=== PATIENT | male | born 1990 | race Caucasian/White ===

== ENCOUNTER 2022-08-16 11:36 | Emergency (ER) | payer SELFPAY ==
[~2022-08-16] VITALS: Ht 157 cm; Wt 83.0 kg
[2022-08-16 11:48] VITALS: BP 119/68
[2022-08-16] MEDS ORDERED: HYDROcodone/APAP 7.5 MG/325 MG (LORTAB, LORCET PLUS) TABLET PO STA (12:03)
[2022-08-16] MEDS ORDERED: CLIN-144 PO ×2 (12:07→12:10)
[2022-08-16] MEDS ORDERED: ACHD5005 PO (12:07)
--- NOTE | 2022-08-16 12:08 | ED EENT ---
History of Present Illness General Chief Complaint: Dental Problems/Pain Stated Complaint: TOOTH PAIN Nursing Triage Note: RIGHT SIDED DENTAL PAIN. Source: patient Exam Limitations: no limitations History of Present Illness Date Seen by Provider: Aug 16, 2022 Time Seen by Provider: 12:04 Initial Comments Patient is a 31-year-old male who presents to the ED for right lower dental pain. This started 2 days ago. Started having a sharp shooting pain to the right lower jaw and ear. Patient states cold fluids seem to help resolve some of his pain. Has been taken Tylenol and ibuprofen without much improvement. Noted some mild right-sided facial swelling. History of similar type dental pain in the past. States he has a few teeth in a pool. Denies fever, chills, body aches, cough, shortness of breath, chest pain, abdominal pain, vomiting or diarrhea. Allergies and Home Medications Allergies Coded Allergies: No Known Drug Allergies (Unverified , 08/16/22) Patient Home Medication List Home Medication List Reviewed: Yes Clindamycin HCl (Clindamycin HCl) 300 Mg Capsule, 300 MG PO QID Prescribed by: COLBY ATKINS on 08/16/22 1210 Hydrocodone/Acetaminophen (Hydrocodone-Acetamin 5-325 mg) 5 Mg-325 Mg Tablet, 1 TAB PO Q4H PRN for PAIN-MODERATE (5-7) Prescribed by: COLBY ATKINS on 08/16/22 1208 Discontinued Medications Clindamycin HCl (Clindamycin HCl) 300 Mg Capsule, 300 MG PO TID Prescribed by: COLBY ATKINS on 08/16/22 1207 Review of Systems Review of Systems Constitutional: No chills, No diaphoresis, No fever, No malaise, No weakness Eyes: Denies Blurred Vision, Denies Drainage, Denies Decreased Acuity Ears: Denies Dizziness, Denies Pain Nose: denies clots, denies congestion, denies pain Mouth: denies clots, denies loose teeth; pain, swelling Throat: denies pain, denies swelling, denies discharge Respiratory: No cough, No dyspnea on exertion Cardiovascular: No chest pain Gastrointestinal: No abdominal pain, No diarrhea, No nausea, No vomiting Musculoskeletal: No back pain, No joint pain Skin: No change in color, No change in hair/nails All Other Systems Reviewed Negative Unless Noted: Yes Past Zoatfjg-Lqmeqk-Idokde Hx Patient Social History Tobacco Use?: No Substance use?: Yes Substance type: Marijuana Physical Exam Vital Signs Vital Signs - First Documented 08/16/22 11:48 Pulse 67 Resp 16 B/P (MAP) 119/68 (85) Pulse Ox 98 O2 Delivery Room Air Height, Weight, BMI Height: '" Weight: lbs. oz. kg; 33.00 BMI Method: General Appearance: WD/WN, no apparent distress Eyes: bilateral eye EOMI Ears: bilateral ear auricle normal, bilateral ear canal normal, bilateral ear TM normal Nose: normal inspection Mouth/Throat: other (Decay noted to right second lower molar. Gum swelling erythema. No active drainage. No obvious abscess. 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 (08/16/22 12:03) Vital Signs/I&O 08/16/22 11:48 Pulse 67 Resp 16 B/P (MAP) 119/68 (85) Pulse Ox 98 O2 Delivery Room Air Blood Pressure Mean: 85 Departure Communication (PCP) Reviewed previous ER visits, H&P, lab testing. Right lower dental pain for the past 2 weeks. Cold fluids seem to help. Reports right-sided facial swelling. Differential diagnosis,. Dental abscess, periapical abscess, facial cellulitis. On exam very minimal swelling on the right side. Right lower second molar with decay concern for periapical abscess. Gum swelling erythema without evidence of an abscess on exam. discuss dental block patient refused. Requested oral pain medication which was given. Patient will be started on clindamycin. Recommend probiotics. We will provide a few days worth of pain medication. Recommend ice for facial swelling. Recommend dental outpatient follow-up for further evaluation. If increased pain, redness or swelling of the face to return back to ED Impression Primary Impression: Tooth ache Disposition: 01 HOME, SELF-CARE Condition: Stable Departure-Patient Inst. Decision time for Depature: 12:06 Referrals: [facility] [place]YSIC[place] (PCP) Primary Care Physician Patient Instructions: Dental Pain Add. Discharge Instructions: Recommend following up with a dentist for further evaluation. If any worsening swelling or pain to return back to ED. recommend probiotic All discharge instructions reviewed with patient and/or family. Voiced underst anding. Scripts Clindamycin HCl (Clindamycin HCl) 300 Mg Capsule 300 MG PO QID for 7 Days, #28 CAP Prov: STORM ALVARADO 08/16/22 Hydrocodone/Acetaminophen (Hydrocodone-Acetamin 5-325 mg) 5 Mg-325 Mg Tablet 1 TAB PO Q4H PRN for PAIN-MODERATE (5-7), #8 TAB Prov: STORM ALVARADO 08/16/22 STORM ALVARADO Aug 16, 2022 12:08
== END 2022-08-16 12:30 | disposition home or self-care (01) ==
LOC: ER 11:41
DX: K02.9 Dental caries, unspecified (principal)
CPT/HCPCS: 99283

== ENCOUNTER 2022-10-24 10:43 | Emergency (ER) | payer SELFPAY ==
[~2022-10-24] VITALS: Ht 157 cm; Wt 86.0 kg
[~2022-10-24 10:43] MED LIST: ACHD5005 PO; CLIN-144 PO
[2022-10-24] MEDS ORDERED: KETOROLAC INJ 30 MG/ML VIAL IVP ONE (11:00)
[2022-10-24] MEDS ORDERED: ONDANSETRON 4 MG/2 ML (SDV) Z0FRAN IVP ONE (11:00)
[2022-10-24 11:13] LABS: BASOPHILS # (AUTO) 0.1 10^3/uL (0.0-0.1); BASOPHILS % (AUTO) 1 % (0-10); EOSINOPHILS # (AUTO) 0.1 10^3/uL (0.0-0.3); EOSINOPHILS % (AUTO) 1 % (0-10); HEMATOCRIT 49 % (40-54); HEMOGLOBIN 15.9 g/dL (13.3-17.7); LYMPHOCYTES # (AUTO) 1.6 10^3/uL (1.0-4.0); LYMPHOCYTES % (AUTO) 17 % (12-44); MEAN CORPUSCULAR HEMOGLOBIN 27 pg (25-34); MEAN CORPUSCULAR HGB CONC 32 g/dL (32-36); MEAN CORPUSCULAR VOLUME 84 fL (80-99); MEAN PLATELET VOLUME 9.7 fL (9.0-12.2); MONOCYTES # (AUTO) 0.4 10^3/uL (0.0-1.0); MONOCYTES % (AUTO) 5 % (0-12); NEUTROPHILS # (AUTO) 7.6 10^3/uL (1.8-7.8); NEUTROPHILS % (AUTO) 77 % (42-75); PLATELET COUNT 308 10^3/uL (130-400); WHITE BLOOD COUNT 9.9 10^3/uL (4.3-11.0)
--- NOTE | 2022-10-24 11:13 | ED Abdominal Pain ---
General Chief Complaint: - Reproductive Stated Complaint: LOWER ABD PAIN Nursing Triage Note: PT STATES BALLS HURT, STATES WOKE UP THIS AM W THIS PAIN THAT GOES TO R LOWER ABD. PT STATES HAS N\\V. PT HAS HX OF KIDNEYSTONE. Source of Information: Patient Exam Limitations: No Limitations History of Present Illness Date Seen by Provider: Oct 24, 2022 Time Seen by Provider: 10:46 Initial Comments 32-year-old male with past medical history of kidney stones coming in due to right lower quadrant abdominal pain radiating to his right groin. Started roughly 3 hours ago mostly to his right testicle. He checked his testicle, was not particularly tender and was not swollen. He states it feels similar somewhat to a kidney stone that has had in the past. The pain now is completely in his abdomen and none in his testicle. Denies any dysuria or discharge. Has had some nausea with it. Took 600 mg of ibuprofen a couple hours ago which did help. Otherwise denying any other acute complaints including no fever or trauma. Allergies and Home Medications Allergies Coded Allergies: No Known Drug Allergies (Unverified , 08/16/22) Patient Home Medication List Home Medication List Reviewed: Yes Clindamycin HCl (Clindamycin HCl) 300 Mg Capsule, 300 MG PO QID Prescribed by: COLBY ATKINS on 08/16/22 1210 Hydrocodone/Acetaminophen (Hydrocodone-Acetamin 5-325 mg) 5 Mg-325 Mg Tablet, 1 TAB PO Q4H PRN for PAIN-MODERATE (5-7) Prescribed by: COLBY ATKINS on 08/16/22 1208 Review of Systems Review of Systems Constitutional: No fever EENTM: No Symptoms Reported Respiratory: No Symptoms Reported Cardiovascular: No Symptoms Reported Gastrointestinal: See HPI Genitourinary: See HPI Musculoskeletal: no symptoms reported Skin: no symptoms reported Psychiatric/Neurological: No Symptoms Reported Endocrine: No Symptoms Reported Hematologic/Lymphatic: No Symptoms Reported Past Ucfcori-Ocvqod-Ltcgik Hx Patient Social History Tobacco Use?: No Use of E-Cig and/or Vaping dev: Yes E-Cig or Vaping type used: Nicotine Use of E-Cig and/or Vaping Mateusz: Current Everyday User Substance use?: Yes Substance type: Marijuana Substance frequency: Once in a while Alcohol Use?: No Pt feels they are or have been: No Past Medical History Surgery/Hospitalization HX: KIDNEY, LEG SURG Physical Exam Vital Signs Vital Signs - First Documented 10/24/22 10:50 Temp 35.6 Pulse 53 Resp 16 B/P (MAP) 115/79 (91) Pulse Ox 100 Capillary Refill : Less Than 3 Seconds Height/Weight/BMI Height: '" Weight: lbs. oz. kg; 34.00 BMI Method: General Appearance: WD/WN, no apparent distress HEENT: PERRL/EOMI, normal ENT inspection, pharynx normal Neck: non-tender, full range of motion, supple, normal inspection Respiratory: chest non-tender, lungs clear, normal breath sounds, no respiratory distress, no accessory muscle use Cardiovascular: regular rate, rhythm, no edema, no murmur Gastrointestinal: normal bowel sounds, non tender, soft; No distended, No guarding, No rebound, No tenderness Genital/Rectal: normal genital exam, other (No testicular swelling or pain, normal cremasteric reflex) Extremities: normal range of motion, non-tender, normal inspection, no pedal edema, no calf tenderness, normal capillary refill Back: normal inspection, CVA tenderness (R); No CVA tenderness (L) Neurologic/Psychiatric: no motor/sensory deficits, alert, normal mood/affect Skin: normal color, warm/dry Progress/Results/Core Measures Results/Orders Lab Results Laboratory Tests Test 10/24/22 11:00 10/24/22 11:47 Range/Units White Blood Count 9.9 4.3-11.0 10^3/uL Red Blood Count 5.81 H 4.30-5.52 10^6/uL Hemoglobin 15.9 13.3-17.7 g/dL Hematocrit 49 40-54 % Mean Corpuscular Volume 84 80-99 fL Mean Corpuscular Hemoglobin 27 25-34 pg Mean Corpuscular Hemoglobin Concent 32 32-36 g/dL Red Cell Distribution Width 14.5 10.0-14.5 % Platelet Count 308 130-400 10^3/uL Mean Platelet Volume 9.7 9.0-12.2 fL Immature Granulocyte % (Auto) 0 % Neutrophils (%) (Auto) 77 H 42-75 % Lymphocytes (%) (Auto) 17 12-44 % Monocytes (%) (Auto) 5 0-12 % Eosinophils (%) (Auto) 1 0-10 % Basophils (%) (Auto) 1 0-10 % Neutrophils # (Auto) 7.6 1.8-7.8 10^3/uL Lymphocytes # (Auto) 1.6 1.0-4.0 10^3/uL Monocytes # (Auto) 0.4 0.0-1.0 10^3/uL Eosinophils # (Auto) 0.1 0.0-0.3 10^3/uL Basophils # (Auto) 0.1 0.0-0.1 10^3/uL Immature Granulocyte # (Auto) 0.0 0.0-0.1 10^3/uL Sodium Level 141 135-145 MMOL/L Potassium Level 4.6 3.6-5.0 MMOL/L Chloride Level 109 H 98-107 MMOL/L Carbon Dioxide Level 23 21-32 MMOL/L Anion Gap 9 5-14 MMOL/L Blood Urea Nitrogen 13 7-18 MG/DL Creatinine 1.18 0.60-1.30 MG/DL Estimat Glomerular Filtration Rate 84 BUN/Creatinine Ratio 11 Glucose Level 118 H 70-105 MG/DL Calcium Level 10.0 8.5-10.1 MG/DL Corrected Calcium 8.5-10.1 MG/DL Total Bilirubin 0.4 0.1-1.0 MG/DL Aspartate Amino Transf (AST/SGOT) 21 5-34 U/L Alanine Aminotransferase (ALT/SGPT) 37 0-55 U/L Alkaline Phosphatase 89 40-136 U/L Total Protein 8.5 H 6.4-8.2 GM/DL Albumin 4.8 H 3.2-4.5 GM/DL Lipase 22 8-78 U/L My Orders Orders - STORM NAVARRETE MD Ct Abd/Pelvis Wo(Kidney Stone) (10/24/22 10:58) Ed Iv/Invasive Line Start (10/24/22 10:58) Cbc With Automated Diff (10/24/22 10:58) Comprehensive Metabolic Panel (10/24/22 10:58) Lipase (10/24/22 10:58) Ua Culture If Indicated (10/24/22 10:58) Ketorolac Injection (Ketorolac Injection (10/24/22 11:00) Ondansetron Injection (Zofran Injectio (10/24/22 11:00) Medications Given in ED Current Medications Medications Dose Ordered Sig/Darin Route Start Time Stop Time Status Last Admin Dose Admin Ketorolac Tromethamine 15 mg ONCE ONCE IVP 10/24/22 11:00 10/24/22 11:01 DC 10/24/22 11:07 15 MG Ondansetron HCl 4 mg ONCE ONCE IVP 10/24/22 11:00 10/24/22 11:01 DC 10/24/22 11:07 4 MG Vital Signs/I&O 10/24/22 10:50 Temp 35.6 Pulse 53 Resp 16 B/P (MAP) 115/79 (91) Pulse Ox 100 Blood Pressure Mean: 91 Progress Progress Note : Progress Note 32-year-old male presenting for right lower quad abdominal pain rating to the right groin. ABCs were intact and vitals were stable on presentation. Physical exam with nontender and nonswollen testicles. No significant tenderness on exam in his abdomen, does have right CVA tenderness concerning for likely kidney stone, especially given his history. An IV was placed and basic labs were obtained and were significant for normal creatinine, normal white blood cell count, normal lipase. CT abdomen pelvis ordered and interpreted by me showing a small kidney stone with mild hydronephrosis on the right consistent with his symptoms. He was given Toradol and Zofran for his symptoms via IV which helped. Urinalysis negative for infection. We will send a prescription for pain medications and have him follow-up with urology as an outpatient. Diagnostic Imaging Diagonstic Imaging: CT (abd/pelvis) Comments NAME: BENEDICT EVERETTTri Dennis [facility] REC#: [id number] PT STATUS: REG ER : 1990 PHYSICIAN: STORM NAVARRETE MD ADMIT DATE: 10/24/22/ER Draft Date of Exam:10/24/22 CT ABD/PELVIS WO(KIDNEY STONE) PROCEDURE: CT urinary tract, rule out kidney stone. TECHNIQUE: Multiple contiguous axial images were obtained through the abdomen and pelvis without the use of intravenous contrast. Auto Exposure Controls were utilized during the CT exam to meet ALARA standards for radiation dose reduction. INDICATION: Flank pain. FINDINGS: Heart size is normal. The lung bases are clear. The liver is normal in size without focal lesions. Gallbladder is unremarkable. There is no biliary duct dilatation. Spleen is normal. The pancreas and adrenal glands are unremarkable. There is mild right hydronephrosis and hydroureter secondary to a 4 mm stone in the mid right ureter. There are no other renal stones. Aorta is nonaneurysmal. The bowel gas pattern is nonspecific. Appendix is normal. There is no free air. No ascites. Some mild diverticular disease without evidence of diverticulitis. There is no pelvic mass, adenopathy or free fluid. Bladder is normal. The osseous structures are unremarkable. IMPRESSION: Mild right hydronephrosis and hydroureter secondary to a 4 mm stone in the mid right ureter. Mild diverticular disease without evidence of diverticulitis. Dictated on workstation # [id number] Dict: 10/24/22 1141 Trans: 10/24/22 1145 CV [id number] Interpreted by: VASU RAMÍREZ MD Electronically signed by: Departure Impression Primary Impression: Ureterolithiasis Disposition: 01 HOME, SELF-CARE Condition: Stable Departure-Patient Inst. Decision time for Depature: 12:20 Referrals: [facility] [place] Primary Care Physician Patient Instructions: Kidney Stone, Adult ED Add. Discharge Instructions: You do unfortunately have a 4 mm kidney stone on the right blocking off the flow of your urine from the kidney somewhat. This is what causes the pain. Ketorolac as well as hydrocodone were sent to your pharmacy for pain. Try the ketorolac first, hydrocodone next. Do not mix the ketorolac with ibuprofen or naproxen. Nausea medicines were also sent. Please follow-up with a urologist of your choosing in the meantime. Scripts Tamsulosin HCl (Flomax) 0.4 Mg Cap 0.4 MG PO DAILY for 14 Days, #14 CAP Prov: STORM NAVARRETE MD 10/24/22 Ondansetron (Ondansetron Odt) 4 Mg Tab.rapdis 4 MG SL Q6H PRN for NAUSEA/VOMITING for 5 Days, #20 TAB Prov: STORM NAVARRETE MD 10/24/22 Ketorolac Tromethamine (Ketorolac Tromethamine) 10 Mg Tablet 10 MG PO Q8H for 4 Days, #12 TAB Prov: STORM NAVARRETE MD 10/24/22 Hydrocodone/Acetaminophen (Hydrocodone-Acetamin 5-325 mg) 5 Mg-325 Mg Tablet 1 TAB PO Q6H PRN for PAIN-MODERATE (5-7) for 3 Days, #12 TAB Prov: STORM NAVARRETE MD 10/24/22 Work/School Note: Work Release Form Date Seen in the Emergency Department: Oct 24, 2022 Return to Work: Oct 25, 2022 Restrictions: Return-No Vomiting(24hrs) STORM NAVARRETE MD Oct 24, 2022 11:13
[2022-10-24 11:24] LABS: ALBUMIN 4.8 GM/DL (3.2-4.5); CHLORIDE 109 MMOL/L (98-107); POTASSIUM 4.6 MMOL/L (3.6-5.0); SODIUM 141 MMOL/L (135-145)
[2022-10-24 11:27] LABS: GLUCOSE 118 MG/DL (70-105); TOTAL PROTEIN 8.5 GM/DL (6.4-8.2)
[2022-10-24 11:28] LABS: BILIRUBIN,TOTAL 0.4 MG/DL (0.1-1.0); CARBON DIOXIDE 23 MMOL/L (21-32)
[2022-10-24 11:30] LABS: ALKALINE PHOSPHATASE 89 U/L (40-136); CREATININE SERUM 1.18 MG/DL (0.60-1.30); GFR ESTIMATED 84
[2022-10-24 11:31] LABS: BUN/CREATININE RATIO 11
[2022-10-24 11:33] LABS: ALANINE AMINOTRANSFERASE 37 U/L (0-55)
[2022-10-24 11:34] LABS: LIPASE 22 U/L (8-78)
--- NOTE | 2022-10-24 11:45 | Diagnostic Imaging Report ---
PROCEDURE: CT urinary tract, rule out kidney stone. TECHNIQUE: Multiple contiguous axial images were obtained through the abdomen and pelvis without the use of intravenous contrast. Auto Exposure Controls were utilized during the CT exam to meet ALARA standards for radiation dose reduction. INDICATION: Flank pain. FINDINGS: Heart size is normal. The lung bases are clear. The liver is normal in size without focal lesions. Gallbladder is unremarkable. There is no biliary duct dilatation. Spleen is normal. The pancreas and adrenal glands are unremarkable. There is mild right hydronephrosis and hydroureter secondary to a 4 mm stone in the mid right ureter. There are no other renal stones. Aorta is nonaneurysmal. The bowel gas pattern is nonspecific. Appendix is normal. There is no free air. No ascites. Some mild diverticular disease without evidence of diverticulitis. There is no pelvic mass, adenopathy or free fluid. Bladder is normal. The osseous structures are unremarkable. IMPRESSION: Mild right hydronephrosis and hydroureter secondary to a 4 mm stone in the mid right ureter. Mild diverticular disease without evidence of diverticulitis. Dictated by: Dictated on workstation # [id number]
[2022-10-24] MEDS ORDERED: KETO10TA PO (12:05)
[2022-10-24] MEDS ORDERED: TMSL.4C PO (12:05)
[2022-10-24] MEDS ORDERED: ONDA4TAB11 SL (12:05)
[2022-10-24] MEDS ORDERED: ACHD5005 PO (12:05)
[2022-10-24 12:09] LABS: CLARITY,URINE SLIGHTLY CLOUDY; COLOR,URINE YELLOW; GLUCOSE, URINE (UA) NEGATIVE (NEGATIVE); KETONES,URINE NEGATIVE (NEGATIVE); PROTEIN,URINE 2+ (NEGATIVE)
[2022-10-24 12:10] LABS: BILIRUBIN,URINE NEGATIVE (NEGATIVE); LEUKOCYTE ESTERASE ,URINE TRACE (NEGATIVE); NITRITE,URINE NEGATIVE (NEGATIVE)
[2022-10-24 12:11] LABS: AMORPHOUS SEDIMENT,UR RARE AMOR URATES /LPF; BACTERIA,URINE FEW /HPF; RBC,URINE TNTC /HPF; SQUAMOUS EPITHELIAL CELL,UR RARE /HPF
[2022-10-24] MEDS ORDERED: HYDROcodone/ACETAMINOPHEN 5 MG/325 MG TABLET PO ONE (12:30)
[2022-10-24 12:33] VITALS: BP 106/67
== END 2022-10-24 12:33 | disposition home or self-care (01) ==
LOC: EDUNIT# 10:43 → ER 10:47
DX: N13.2 Hydronephrosis with renal and ureteral calculous obstruction (principal); F17.290 Nicotine dependence, other tobacco product, uncomplicated
CPT/HCPCS: 36415; 74176; 80053; 81000; 83690; 85025; 87088

== ENCOUNTER 2022-12-14 12:30 | Emergency (ER) | payer SELFPAY ==
[~2022-12-14] VITALS: Ht 157 cm; Wt 82.0 kg
[~2022-12-14 12:30] MED LIST changes: +KETO10TA PO; +ONDA4TAB11 SL; +TMSL.4C PO
[2022-12-14 13:23] LABS: BILIRUBIN,URINE NEGATIVE (NEGATIVE); CLARITY,URINE SL CLOUDY; COLOR,URINE YELLOW; GLUCOSE, URINE (UA) NEGATIVE (NEGATIVE); KETONES,URINE 2+ (NEGATIVE); NITRITE,URINE NEGATIVE (NEGATIVE); PH,URINE 5.5 (5-9); PROTEIN,URINE 1+ (NEGATIVE)
[2022-12-14 13:24] LABS: BACTERIA,URINE NEGATIVE /HPF; LEUKOCYTE ESTERASE ,URINE NEGATIVE (NEGATIVE); RBC,URINE 25-50 /HPF; WBC,URINE 0-2 /HPF
[2022-12-14 13:25] LABS: AMORPHOUS SEDIMENT,UR FEW AMOR URATES /LPF; HYALINE CASTS, URINE 0-2 /LPF; SQUAMOUS EPITHELIAL CELL,UR 0-2 /HPF
[2022-12-14] MEDS ORDERED: NS IV 1000 ML 1,000 ML IV STA (13:31)
[2022-12-14] MEDS ORDERED: KETOROLAC INJ 30 MG/ML VIAL IVP ONE (13:45)
[2022-12-14] MEDS ORDERED: ONDANSETRON INJECTION 4 MG/2 ML (SDV) IVP ONE (13:45)
--- NOTE | 2022-12-14 13:48 | ED Back Pain ---
General Chief Complaint: Back Problems Stated Complaint: KIDNEY PAIN Nursing Triage Note: pt states he was diagnosed with a kidney stone in the ED. has had no relief of his symptoms. denies blood in urine, denies fevers. Source of Information: Patient Exam Limitations: No Limitations History of Present Illness Date Seen by Provider: Dec 14, 2022 Time Seen by Provider: 13:45 Initial Comments Patient is a 32-year-old male who presents to ED with bilateral lower back pain and groin pain since 4 days ago. Pain is described as sharp intermittent radiate to the testicles. Reports some mild burning with urination for frequent urination. Patient reports nausea without vomiting. History of kidney stones. Patient denies any vomiting or diarrhea. Patient has been taking ibuprofen without much improvement. Reports dark urine. Patient denies of any testicle or swelling, penile lesions, chest pain, cough, shortness of breath or fever, chills. Similar type pain in the past with his kidney stones. Has not followed up since that visit. Not concern for sexual transmitted infection. Allergies and Home Medications Allergies Coded Allergies: No Known Drug Allergies (Unverified , 08/16/22) Patient Home Medication List Home Medication List Reviewed: Yes Clindamycin HCl (Clindamycin HCl) 300 Mg Capsule, 300 MG PO QID Prescribed by: COLBY ATKINS on 08/16/22 1210 Hydrocodone/Acetaminophen (Hydrocodone-Acetamin 5-325 mg) 5 Mg-325 Mg Tablet, 1 TAB PO Q4H PRN for PAIN-MODERATE (5-7) Prescribed by: COLBY ATKINS on 08/16/22 1208 Hydrocodone/Acetaminophen (Hydrocodone-Acetamin 5-325 mg) 5 Mg-325 Mg Tablet, 1 TAB PO Q6H PRN for PAIN-MODERATE (5-7) Prescribed by: STORM NAVARRETE on 10/24/22 1205 Hydrocodone/Acetaminophen (Hydrocodone-Acetamin 5-325 mg) 5 Mg-325 Mg Tablet, 1 TAB PO Q4H PRN for PAIN-MODERATE (5-7) Prescribed by: COLBY ATKINS on 12/14/22 1510 Ketorolac Tromethamine (Ketorolac Tromethamine) 10 Mg Tablet, 10 MG PO Q8H Prescribed by: STORM NAVARRETE on 10/24/22 1205 Ondansetron (Ondansetron Odt) 4 Mg Tab.rapdis, 4 MG SL Q6H PRN for NAUSEA/VOMITING Prescribed by: STORM NAVARRETE on 10/24/22 1205 Tamsulosin HCl (Flomax) 0.4 Mg Cap, 0.4 MG PO DAILY Prescribed by: STORM NAVARRETE on 10/24/22 1205 Review of Systems Constitutional: No chills, No diaphoresis, No malaise, No weakness EENTM: No ear pain Respiratory: No dyspnea on exertion Cardiovascular: No chest pain, No edema Gastrointestinal: abdominal pain; No diarrhea, No nausea Genitourinary: No decreased output, No discharge Musculoskeletal: back pain; No joint pain Skin: No change in color All Other Systems Reviewed Negative Unless Noted: Yes Past Kqresdd-Hiyono-Dpnitq Hx Patient Social History Tobacco Use?: No Use of E-Cig and/or Vaping dev: No Substance use?: No Alcohol Use?: No Pt feels they are or have been: No Past Medical History Surgery/Hospitalization HX: KIDNEY, LEG SURG Physical Exam Vital Signs Vital Signs - First Documented 12/14/22 12:35 Temp 36.4 Pulse 82 Resp 20 B/P (MAP) 136/92 (107) Pulse Ox 98 O2 Delivery Room Air Capillary Refill : Less Than 3 Seconds Height, Weight, BMI Height: '" Weight: lbs. oz. kg; 33.00 BMI Method: General Appearance: No Apparent Distress, WD/WN HEENT: PERRL/EOMI, TMs Normal, Normal ENT Inspection, Pharynx Normal Neck: Full Range of Motion, Normal Inspection, Non Tender, Supple Cardiovascular: Regular Rate, Rhythm, No Edema, No Gallop, No JVD Respiratory: Chest Non Tender, Lungs Clear, Normal Breath Sounds, No Accessory Muscle Use, No Respiratory Distress Gastrointestinal: Normal Bowel Sounds, No Organomegaly, No Pulsatile Mass, Non Tender Genital/Rectal: Normal Genital Exam Back: Normal Inspection, No CVA Tenderness Neurologic/Psychiatric: Alert, Oriented x3, No Motor/Sensory Deficits, Normal Mood/Affect, 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 Norm as Tested Skin: Normal Color, Warm/Dry Progress/Results/Core Measures Results/Orders Lab Results Laboratory Tests Test 12/14/22 13:02 12/14/22 13:52 Range/Units Urine Color YELLOW Urine Clarity SL CLOUDY Urine pH 5.5 5-9 Urine Specific [place] 1.015 L 1.016-1.022 Urine Protein 1+ H NEGATIVE Urine Glucose (UA) NEGATIVE NEGATIVE Urine Ketones 2+ H NEGATIVE Urine Nitrite NEGATIVE NEGATIVE Urine Bilirubin NEGATIVE NEGATIVE Urine Urobilinogen 0.2 < = 1.0 MG/DL Urine Leukocyte Esterase NEGATIVE NEGATIVE Urine RBC (Auto) 3+ H NEGATIVE Urine RBC 25-50 H /HPF Urine WBC 0-2 /HPF Urine Squamous Epithelial Cells 0-2 /HPF Urine Crystals PRESENT H /LPF Urine Amorphous Sediment FEW KEE URATES H /LPF Urine Bacteria NEGATIVE /HPF Urine Casts PRESENT /LPF Urine Hyaline Casts 0-2 H /LPF Urine Mucus MODERATE H /LPF Urine Culture Indicated NO White Blood Count 10.4 4.3-11.0 10^3/uL Red Blood Count 5.06 4.30-5.52 10^6/uL Hemoglobin 14.0 13.3-17.7 g/dL Hematocrit 42 40-54 % Mean Corpuscular Volume 83 80-99 fL Mean Corpuscular Hemoglobin 28 25-34 pg Mean Corpuscular Hemoglobin Concent 34 32-36 g/dL Red Cell Distribution Width 13.8 10.0-14.5 % Platelet Count 256 130-400 10^3/uL Mean Platelet Volume 9.9 9.0-12.2 fL Immature Granulocyte % (Auto) 0 % Neutrophils (%) (Auto) 73 42-75 % Lymphocytes (%) (Auto) 16 12-44 % Monocytes (%) (Auto) 9 0-12 % Eosinophils (%) (Auto) 1 0-10 % Basophils (%) (Auto) 1 0-10 % Neutrophils # (Auto) 7.6 1.8-7.8 10^3/uL Lymphocytes # (Auto) 1.7 1.0-4.0 10^3/uL Monocytes # (Auto) 0.9 0.0-1.0 10^3/uL Eosinophils # (Auto) 0.1 0.0-0.3 10^3/uL Basophils # (Auto) 0.1 0.0-0.1 10^3/uL Immature Granulocyte # (Auto) 0.0 0.0-0.1 10^3/uL Sodium Level 139 135-145 MMOL/L Potassium Level 3.8 3.6-5.0 MMOL/L Chloride Level 108 H 98-107 MMOL/L Carbon Dioxide Level 19 L 21-32 MMOL/L Anion Gap 12 5-14 MMOL/L Blood Urea Nitrogen 17 7-18 MG/DL Creatinine 1.09 0.60-1.30 MG/DL Estimat Glomerular Filtration Rate 92 BUN/Creatinine Ratio 16 Glucose Level 87 70-105 MG/DL Calcium Level 9.3 8.5-10.1 MG/DL Corrected Calcium 9.1 8.5-10.1 MG/DL Total Bilirubin 0.6 0.1-1.0 MG/DL Aspartate Amino Transf (AST/SGOT) 23 5-34 U/L Alanine Aminotransferase (ALT/SGPT) 31 0-55 U/L Alkaline Phosphatase 70 40-136 U/L Total Protein 7.3 6.4-8.2 GM/DL Albumin 4.3 3.2-4.5 GM/DL Lipase 12 8-78 U/L My Orders Orders - STORM ALVARADO Ua Culture If Indicated (12/14/22 12:37) Cbc And Automated Diff (12/14/22 13:31) Comprehensive Metabolic Panel (12/14/22 13:31) Lipase (12/14/22 13:31) Ct Abd/Pelvis Wo(Kidney Stone) (12/14/22 13:31) Ns Iv 1000 Ml (Ns Iv 1000 Ml) (12/14/22 13:31) Ondansetron Injection (Ondansetron Inj (12/14/22 13:45) Ketorolac Injection (Ketorolac Injection (12/14/22 13:45) Medications Given in ED Current Medications Medications Dose Ordered Sig/Darin Route Start Time Stop Time Status Last Admin Dose Admin Ketorolac Tromethamine 30 mg ONCE ONCE IVP 12/14/22 13:45 12/14/22 13:46 DC 12/14/22 13:54 30 MG Ondansetron HCl 4 mg ONCE ONCE IVP 12/14/22 13:45 12/14/22 13:46 DC 12/14/22 13:54 4 MG Vital Signs/I&O 12/14/22 12/14/22 12:35 15:30 Temp 36.4 Pulse 82 76 Resp 20 20 B/P (MAP) 136/92 (107) 117/80 Pulse Ox 98 98 O2 Delivery Room Air Room Air Blood Pressure Mean: 107 Departure Communication (PCP) Patient presents ED with bilateral flank, lower groin discomfort. Symptoms started the weekend. Pain is intermittent sharp. Nausea without vomiting. History of kidney stones. Patient was seen in October diagnosed with a 4 mm obstructing stone. That pain did improve. Reports some mild burning with urination and dark urine. Differential diagnosis cystitis, ureter phthisis, nephrolithiasis, pyelonephritis. No testicle or tenderness or swelling. No groin inguinal lymphadenopathy. Bilateral flank discomfort. No abdominal tenderness. CBC, CMP, lipase urinalysis was ordered. Urinalysis positive for hematuria without evidence of infection. CBC, CMP grossly unremarkable. CT abdomen pelvis without contrast shows persistent mild to moderate hydronephrosis with no worsening changes since last visit. No calculus. Potentially passed a stone. No evidence suggesting surgical abdomen. Patient is currently pain- free. Did receive a liter of fluid and Toradol with improvement. He states pain did improve right after he urinated concerned that he may have passed the stone. Will discharge a few days worth of pain medication if pain persist. Recommend staying hydrated. Follow-up with PCP in 2 to 3 days for reevaluation. If any worsening symptoms return back to the ED. Impression Primary Impression: Hydronephrosis Disposition: 01 HOME, SELF-CARE Condition: Stable Departure-Patient Inst. Decision time for Depature: 15:09 Referrals: [facility] [place] (PCP/Family) Primary Care Physician Patient Instructions: Hydronephrosis, Adult (DC) Scripts Hydrocodone/Acetaminophen (Hydrocodone-Acetamin 5-325 mg) 5 Mg-325 Mg Tablet 1 TAB PO Q4H PRN for PAIN-MODERATE (5-7), #8 TAB Prov: STORM ALVARADO 12/14/22 STORM ALVARADO Dec 14, 2022 13:48
[2022-12-14 14:00] LABS: BASOPHILS # (AUTO) 0.1 10^3/uL (0.0-0.1); BASOPHILS % (AUTO) 1 % (0-10); EOSINOPHILS # (AUTO) 0.1 10^3/uL (0.0-0.3); EOSINOPHILS % (AUTO) 1 % (0-10); HEMATOCRIT 42 % (40-54); LYMPHOCYTES # (AUTO) 1.7 10^3/uL (1.0-4.0); LYMPHOCYTES % (AUTO) 16 % (12-44); MEAN CORPUSCULAR HEMOGLOBIN 28 pg (25-34); MEAN CORPUSCULAR HGB CONC 34 g/dL (32-36); MEAN CORPUSCULAR VOLUME 83 fL (80-99); MEAN PLATELET VOLUME 9.9 fL (9.0-12.2); MONOCYTES # (AUTO) 0.9 10^3/uL (0.0-1.0); MONOCYTES % (AUTO) 9 % (0-12); NEUTROPHILS # (AUTO) 7.6 10^3/uL (1.8-7.8); NEUTROPHILS % (AUTO) 73 % (42-75); PLATELET COUNT 256 10^3/uL (130-400); WHITE BLOOD COUNT 10.4 10^3/uL (4.3-11.0)
[2022-12-14 14:13] LABS: ALBUMIN 4.3 GM/DL (3.2-4.5); POTASSIUM 3.8 MMOL/L (3.6-5.0)
[2022-12-14 14:14] LABS: CALCIUM 9.3 MG/DL (8.5-10.1)
[2022-12-14 14:16] LABS: TOTAL PROTEIN 7.3 GM/DL (6.4-8.2)
--- NOTE | 2022-12-14 14:16 | Diagnostic Imaging Report ---
EXAMINATION: CT abdomen and pelvis without contrast. TECHNIQUE: Multiple contiguous axial images were obtained through the abdomen and pelvis without the use of intravenous contrast. All CT scans use one or more of the following dose optimizing techniques: automated exposure control, MA and/or KvP adjustment based on patient size and exam type or iterative reconstruction. HISTORY: bilateral flank pain COMPARISON: 10/24/2022 FINDINGS: Lung bases: The lung bases are clear. Solid organs: The liver is normal. The gallbladder is normal. There is no biliary ductal dilation. Pancreas is normal. Spleen is normal. Adrenal glands are normal. There is moderate hydronephrosis, not significantly changed from prior exam. No visualized obstructing renal or ureteral calculus is seen. The left kidney is unremarkable without hydronephrosis. Bowel: The stomach and small bowel are normal without obstruction. There is scattered colonic diverticulosis. The appendix is normal. Peritoneum: There is no intraperitoneal free fluid or free air. No suspicious lymphadenopathy. Vasculature: Normal without aneurysm. Musculoskeletal: No suspicious osseous lesion or compression fracture. Pelvis: The prostate gland is normal. The urinary bladder is normal. IMPRESSION: 1. Persistent moderate hydronephrosis without visualized obstructing calculus. 2. No other visualized renal calculus. 3. No other acute abnormality in the abdomen or pelvis. Dictated by: Dictated on workstation # [id number]
[2022-12-14 14:17] LABS: BILIRUBIN,TOTAL 0.6 MG/DL (0.1-1.0)
[2022-12-14 14:19] LABS: CREATININE SERUM 1.09 MG/DL (0.60-1.30)
[2022-12-14] MEDS ORDERED: ACHD5005 PO (15:09)
[2022-12-14 15:30] VITALS: BP 117/80
== END 2022-12-14 15:30 | disposition home or self-care (01) ==
LOC: EDUNIT# 12:30 → ER 12:32
DX: N13.30 Unspecified hydronephrosis (principal)
CPT/HCPCS: 36415; 74176; 80053; 81000; 83690; 85025